=== PATIENT | female | born 2000 | race Caucasian/White ===

== ENCOUNTER 2023-12-25 18:51 | Emergency (ER) | payer SELFPAY ==
[2023-12-25 18:53] VITALS: BP 123/81; PULSE 104; RESP 18; TEMP 36.4; O2SAT 100
--- NOTE | 2023-12-25 19:59 | ED.GENADULT ---
HPI - General Adult General Chief complaint: Wound/Laceration Stated complaint: right foot pain Time Seen by Provider: 12/25/23 19:38 History of Present Illness HPI narrative: This is a 23-year-old female presenting with a ?weird lump on her foot. ?Patient notes she has had this for several weeks. It hurts to walk on. Related Data Allergies Allergy/AdvReac Type Severity Reaction Status Date / Time No Known Allergies Allergy Unverified 02/03/18 00:34 Exam Narrative: APPEARANCE: No apparent distress. Head: atraumatic. EYES: EOMI, NOSE: Atraumatic NECK: Trachea midline RESPIRATORY: No increased rate of breathing CARDIOVASCULAR: RRR, ABDOMINAL: Non-distended MUSCULOSKELETAl: No obvious deformities NEURO: Alert. Moving 4/4 extremities SKIN:: Plantar wart on the bottom of her right foot PSYCHIATRIC: Normal affect Course Vital Signs Vital signs: Vital Signs Temperature 97.5 F L 12/25/23 18:53 Pulse Rate 104 H 12/25/23 18:53 Respiratory Rate 18 12/25/23 18:53 Blood Pressure 123/81 12/25/23 18:53 Pulse Oximetry 100 12/25/23 18:53 Oxygen Delivery Room Air 12/25/23 18:53 Temperature 97.5 F L 12/25/23 18:53 Pulse Rate 104 H 12/25/23 18:53 Respiratory Rate 18 12/25/23 18:53 Blood Pressure 123/81 12/25/23 18:53 Pulse Oximetry 100 12/25/23 18:53 Oxygen Delivery Room Air 12/25/23 18:53 Medical Decision Making [facility] Narrative Medical decision making narrative: -Course: 23-year-old presenting with plantar were not vomited foot. Discharged with instructions use [id number] medicine or to follow up with Podiatry. -DDX includes but is not limited to: Plantar wart, laceration, foreign body Vital Signs Vital Signs: Vital Signs Temperature 97.5 F L 12/25/23 18:53 Pulse Rate 104 H 12/25/23 18:53 Respiratory Rate 18 12/25/23 18:53 Blood Pressure 123/81 12/25/23 18:53 Pulse Oximetry 100 12/25/23 18:53 Oxygen Delivery Room Air 12/25/23 18:53 Temperature 97.5 F L 12/25/23 18:53 Pulse Rate 104 H 12/25/23 18:53 Respiratory Rate 18 12/25/23 18:53 Blood Pressure 123/81 12/25/23 18:53 Pulse Oximetry 100 12/25/23 18:53 Oxygen Delivery Room Air 12/25/23 18:53 Discharge Plan Discharge Clinical Impression: Warts of foot Patient Disposition: Home, Self-Care Condition: Stable Instructions: Antibiotic Form, Plantar Wart (ED) Additional Instructions: Use [id number] plantar wart removal or follow up with Podiatry. Follow-up/Referrals: PHYSICIAN,DIRECTOR [employer]ICULT[employer] [Primary Care Provider] - Trent Gonzales JR, MD [Physician] - 1 Week (plantar wart)
[2023-12-25 22:43] VITALS: BP 126/84; PULSE 95; RESP 16; O2SAT 100
== END 2023-12-25 22:44 | disposition home or self-care (01) ==
LOC: ANHED 20:16
PROVIDERS: Emergency Provider Emergency Medicine; PCP Pediatrics
DX: B07.9 Viral wart, unspecified (principal)
CPT/HCPCS: 99281